=== PATIENT | female | born 1990 | race African-American/Black ===

== ENCOUNTER 2018-01-09 12:25 | Inpatient (IN) | payer BC ==
[~2018-01-09] VITALS: Ht 157.5 cm; Wt 46.6 kg
[2018-01-09] MEDS ORDERED: SODIUM CHLORIDE 0.9% 1,000 ML IVB ONE (12:40)
[2018-01-09 13:16] LABS: Basophils # (auto) 0.1 uL; Basophils % (auto) 1.7 % (0.0-2.0); Eosinophils # (auto) 0.1 uL; Eosinophils % (auto) 2.1 % (0.0-7.0); Hematocrit 47.8 % (36.0-46.0); Hemoglobin 16.3 g/dL (12.2-16.2); Lymphocytes # (auto) 2.5 uL; Lymphocytes % (auto) 38.1 % (10.0-50.0); Mean Corpuscular Hemoglobin 32.3 pg (28.0-32.0); Mean Corpuscular Hgb Conc. 34.1 g/dL (32.0-36.0); Mean Corpuscular Volume 94.7 fL (80.0-100.0); Monocytes # (auto) 0.5 uL; Monocytes % (auto) 7.3 % (0.0-12.0); Neutrophils # (auto) 3.3 uL; Neutrophils % (auto) 50.8 % (37.0-80.0); Nucleated Red Blood Cells % 0.1 %; Platelet Count (auto) 273 10^3/uL (140-450); Red Blood Cells 5.05 10^6/uL (4.0-5.20); Red Cell Distribution Width 13.1 % (11.8-14.3); White Blood Cell 6.5 10^3/uL (4.4-10.8)
[2018-01-09 13:29] LABS: INR 0.94 (0.9-1.15); Partial Thromboplastin Time 30.2 sec (23.78-33.04); Prothrombin Time 10.1 sec (9.27-12.13)
[2018-01-09 13:35] LABS: Albumin 4.6 g/dL (3.4-5.0); BUN/Creatinine Ratio 9.9; Bilirubin, Total 0.4 mg/dL (0.2-1.0); Calcium 9.2 mg/dL (8.5-10.1); Magnesium 2.8 mg/dL (1.6-2.6); Potassium 3.3 mmol/L (3.5-5.1); Total Protein 8.9 g/dL (6.4-8.2)
[2018-01-09] MEDS ORDERED: POTASSIUM CHL 20 Meq TABLET PO ONE (17:00)
[2018-01-09] MEDS ORDERED: LACTULOSE 20Gm/30ML SOLN PO PRN (17:15)
[2018-01-09] MEDS ORDERED: traMADol HCL 50 MG TAB PO PRN (17:15)
[2018-01-09] MEDS ORDERED: MORPHINE SULF INJ 2 MG/ML SYRINGE 1ML IV PRN ×2 (17:15)
[2018-01-09] MEDS ORDERED: SOD CHL 0.9%/ KCL 40MEQ 1,000 ML IV ONE (17:15)
[2018-01-09] MEDS ORDERED: PROMETHAZINE HCL 25 MG/ML 1ML IV PRN (17:15)
[2018-01-09] MEDS ORDERED: ACETAMINOPHEN 500 MG TAB PO PRN (17:15)
[2018-01-09] MEDS ORDERED: LORazepam 0.5 MG TAB PO PRN (17:15)
[2018-01-09] MEDS ORDERED: TEMAZEPAM 15 MG CAP PO PRN (17:15)
[2018-01-09] MEDS ORDERED: NITROGLYCERIN 0.4 MG SL TAB SL PRN (17:15)
[2018-01-09] MEDS: PANTOPRAZOLE 40 MG TAB PO SCH (17:17)
[2018-01-09 21:55] VITALS: BP 121/67
[2018-01-09] MEDS: METOPROLOL TARTRATE 25 MG TAB PO SCH (22:40)
[2018-01-09] MEDS ORDERED: MULT1TAB61 PO (23:46)
[2018-01-09] MEDS ORDERED: FAM20T PO (23:46)
[2018-01-10 05:11] VITALS: BP 104/56
[2018-01-10 06:07] LABS: Alcohol, Urine < 3.0 mg/dL (0-5); Amphetamine Screen, Urine NEGATIVE (NEGATIVE); Barbiturate Scree,Urine NEGATIVE (NEGATIVE); Benzodiazephine Screen, Urine POSITIVE (NEGATIVE); Cannabinoid Screen, Urine NEGATIVE (NEGATIVE); Cocaine Screen, Urine NEGATIVE (NEGATIVE); Opiate Scree,Urine NEGATIVE (NEGATIVE); Phencyclidine Screen, Urine NEGATIVE (NEGATIVE)
[2018-01-10 06:53] LABS: Cholesterol 115 mg/dL (< 200); HDL Cholesterol 46 mg/dL (40-59); LDL Cholesterol 66 mg/dL (< 100); Triglycerides 69 mg/dL (< 150)
[2018-01-10 08:28] VITALS: BP 119/81
[2018-01-10 08:58] LABS: Folate (Folic Acid) 17.51 ng/mL (5.38-24)
[2018-01-10] MEDS: METOPROLOL TARTRATE 25 MG TAB PO SCH (10:02)
[2018-01-10] MEDS: PANTOPRAZOLE 40 MG TAB PO SCH (10:03)
[2018-01-10 12:38] VITALS: BP 116/67
[2018-01-10 17:44] VITALS: BP 113/63
[2018-01-10] MEDS ORDERED: MAGNESIUM OXIDE 400 MG TAB PO SCH (22:00)
== END 2018-01-10 20:30 | disposition left against medical advice (07) | DRG 310 ==
LOC: ER 12:25 → EDBD 12:25 → TELE 12:26 → TELE-CENTR 20:25
PROVIDERS: ADMIT Internal Medicine; ATTEND Internal Medicine
DX: I47.1 Supraventricular tachycardia (principal); K21.9 Gastro-esophageal reflux disease without esophagitis; F41.9 Anxiety disorder, unspecified; Z82.3 Family history of stroke; Z82.49 Family history of ischemic heart disease and other diseases of the circulatory system
CPT/HCPCS: 36415; 70450; 71045; 80053; 80061; 80307; 81025; 82550; 82607; 82746; 83735; 84443; 84484; 85025; 85379; 85610; 85652; 85730; 86141; 93005; 93306; 93886; 96374

== ENCOUNTER → 2018-08-18 | Outpatient (CLI) | payer BC ==
[~2018-08-18] MED LIST: FAM20T PO; MULT1TAB61 PO
[2018-08-18 10:43] LABS: Basophils # (auto) 0 uL; Basophils % (auto) 0.9 % (0.0-2.0); Eosinophils # (auto) 0.1 uL; Eosinophils % (auto) 1.6 % (0.0-7.0); Hematocrit 45.2 % (36.0-46.0); Hemoglobin 15.1 g/dL (12.2-16.2); Lymphocytes # (auto) 1.6 uL; Mean Corpuscular Hemoglobin 32.1 pg (28.0-32.0); Mean Corpuscular Hgb Conc. 33.5 g/dL (32.0-36.0); Mean Corpuscular Volume 95.9 fL (80.0-100.0); Monocytes # (auto) 0.2 uL; Monocytes % (auto) 4.9 % (0.0-12.0); Neutrophils # (auto) 2.5 uL; Neutrophils % (auto) 56.6 % (37.0-80.0); Nucleated Red Blood Cells % 0.1 %; Platelet Count (auto) 242 10^3/uL (140-450); Red Blood Cells 4.72 10^6/uL (4.0-5.20); Red Cell Distribution Width 12.9 % (11.8-14.3); White Blood Cell 4.5 10^3/uL (4.4-10.8)
[2018-08-18 10:44] LABS: Potassium 4.3 mmol/L (3.5-5.1)
[2018-08-18 10:59] LABS: Albumin 3.9 g/dL (3.4-5.0); BUN/Creatinine Ratio 12.1; Bilirubin, Total 0.5 mg/dL (0.2-1.0); Calcium 8.8 mg/dL (8.5-10.1); Total Protein 7.4 g/dL (6.4-8.2)
== END | disposition home or self-care (01) ==
LOC: LAB 09:17
PROVIDERS: ATTEND Physician Assistant
DX: Z00.00 Encounter for general adult medical examination without abnormal findings (principal); K21.9 Gastro-esophageal reflux disease without esophagitis; I47.1 Supraventricular tachycardia; R07.9 Chest pain, unspecified
CPT/HCPCS: 36415; 80053; 80061; 85025

== ENCOUNTER 2018-11-16 13:43 | Emergency (ER) | payer BC ==
[~2018-11-16] VITALS: Ht 157.5 cm; Wt 45.4 kg
[2018-11-16] MEDS ORDERED: SODIUM CHLORIDE 0.9% 1,000 ML IV ONE (14:18)
[2018-11-16 14:44] LABS: Basophils # (auto) 0.1 uL; Basophils % (auto) 1.7 % (0.0-2.0); Eosinophils # (auto) 0.2 uL; Eosinophils % (auto) 4.1 % (0.0-7.0); Hematocrit 43.5 % (36.0-46.0); Hemoglobin 14.3 g/dL (12.2-16.2); Lymphocytes # (auto) 1.7 uL; Lymphocytes % (auto) 39.8 % (10.0-50.0); Mean Corpuscular Hemoglobin 31.3 pg (28.0-32.0); Mean Corpuscular Hgb Conc. 32.9 g/dL (32.0-36.0); Mean Corpuscular Volume 95.1 fL (80.0-100.0); Monocytes # (auto) 0.3 uL; Monocytes % (auto) 7.1 % (0.0-12.0); Neutrophils % (auto) 47.3 % (37.0-80.0); Nucleated Red Blood Cells % 0.2 %; Platelet Count (auto) 245 10^3/uL (140-450); Red Blood Cells 4.57 10^6/uL (4.0-5.20); Red Cell Distribution Width 13.2 % (11.8-14.3); White Blood Cell 4.2 10^3/uL (4.4-10.8)
[2018-11-16 14:56] LABS: Alanine Aminotransferase 14 U/L (13-56); Albumin 3.9 g/dL (3.4-5.0); Anion Gap 8 (5-15); Aspartate Aminotransferase 12 U/L (15-37); Blood Urea Nitrogen 8 mg/dL (7-18); Calcium 8.6 mg/dL (8.5-10.1); Carbon Dioxide 30 mmol/L (21-32); Chloride 105 mmol/L (98-107); Glucose 79 mg/dL (74-106); Sodium 143 mmol/L (136-145)
[2018-11-16 15:00] LABS: Alkaline Phosphatase 53 U/L (45-117); BUN/Creatinine Ratio 10.8; Bilirubin, Total 0.5 mg/dL (0.2-1.0); GFR African American 119 mL/min; GFR Non-African American 98 mL/min; Total Protein 7.3 g/dL (6.4-8.2)
[2018-11-16 16:30] VITALS: BP 109/65
[2018-11-16 17:08] LABS: Urine Amorphous Crystal FEW /hpf (None Seen); Urine Bacteria NONE SEEN /hpf (None Seen); Urine Blood Negative /uL (Negative); Urine Specific Gravity 1.015 (1.001-1.035); Urine WBC 3 /hpf (0 - 5)
== END 2018-11-16 17:31 | disposition home or self-care (01) ==
LOC: ER 13:47
DX: R00.0 Tachycardia, unspecified (principal); K21.9 Gastro-esophageal reflux disease without esophagitis
CPT/HCPCS: 36415; 71045; 80053; 81001; 84484; 85025; 93005; 99284; J7030